=== PATIENT | female | born 1975 | race Caucasian/White ===

== ENCOUNTER 2016-09-15 12:44 | Emergency (ER) | payer BC ==
[2016-09-15 12:19] LABS: BASOPHIL% 0.2 % (0-2.5); EOSINOPHIL% 0.1 % (0.0-7.0); HEMATOCRIT 39.1 % (35.0-45.0); HEMOGLOBIN 13.2 gm/dL (12.0-16.0); LYMPHOCYTE# 0.5 X10e3 (1.0-3.5); LYMPHOCYTE% 6.4 % (17.0-45.0); MEAN CELL VOLUME 89.6 FL (83-96); MEAN CORPUSCULAR HEMOGLOBIN 30.2 PG (28-34); MEAN CORPUSCULAR HGB CONC 33.7 g/dL (30-36); MEAN PLATELET VOLUME 8.5 FL (6.5-11.5); MONOCYTE# 0.8 X10e3 (0-1.0); MONOCYTE% 11.2 % (3.0-12.0); NEUTROPHIL% 82.1 % (40-75); PLATELET COUNT 200 X10e3 (140-420); RED BLOOD COUNT 4.36 X10e (3.90-5.30); RED CELL DISTRIBUTION WIDTH 13.6 % (11.0-15.5); WHITE BLOOD COUNT 7.3 X10e3 (4.0-10.5)
[2016-09-15 12:25] LABS: DIFF IND NO
[2016-09-15 12:39] LABS: ALBUMIN SERUM 3.8 g/dL (3.5-5.0); BILIRUBIN, DIRECT 0.1 mg/dL (0.0-0.2); BILIRUBIN,INDIRECT 0.9 mg/dL (0.0-0.9); BUN/CREATININE RATIO 16.25; CREATININE SERUM 0.8 mg/dL (0.6-1.4); POTASSIUM 3.4 mmol/L (3.5-5.1); PROTEIN TOTAL SERUM 7.7 g/dL (6.0-8.3)
[2016-09-15 12:40] LABS: URINE SOURCE CLEAN CATCH
[2016-09-15 12:42] LABS: URINE APPEARANCE CLOUDY; URINE BILIRUBIN POS (NEG); URINE BLOOD 3+ (NEG); URINE COLOR AMBER; URINE GLUCOSE NEG (NORM); URINE LEUKOCYTE ESTERASE TRACE (NEG); URINE NITRATE POS (NEG); URINE PROTEIN 2+ (NEG); URINE SPECIFIC GRAVITY 1.025 (1.003-1.035)
[~2016-09-15 12:44] MED LIST: CIPRO PO; DIFLUCAN PO; NAPROSYN375 MG PO; NO MEDICATIONS; ROBAXIN500 MG PO
[2016-09-15 12:48] LABS: MICRO INDICATED? YES; URINE KETONE 3+ (NEG)
[2016-09-15 13:01] LABS: CULTURE INDICATED? YES; URINE BACTERIA 4+ (NEG); URINE MUCUS PRESENT; URINE SQUAMOUS EPITHELIAL CELL MANY /[HPF]; URINE WBC 25-50 /[HPF] (0-5); URINE YEAST PRESENT
== END 2016-09-15 16:19 | disposition home or self-care (01) ==
LOC: SED 12:44
PROVIDERS: Emergency Medicine
DX: N30.01 Acute cystitis with hematuria (principal); B37.9 Candidiasis, unspecified
CPT/HCPCS: 36415; 80048; 80076; 81003; 83690; 84703; 85025; 87086; 87088; 87186; 96374; 99284; J2405